=== PATIENT | female | born 1970 | race Caucasian/White ===

== ENCOUNTER 2017-04-11 13:35 | Emergency (ER) | payer OTHER ==
[~2017-04-11] VITALS: Ht 160 cm; Wt 86.2 kg
[~2017-04-11 13:35] MED LIST: ACYCLOVIR800 MG PO; ALBUTEROL SULF8.5 GM IH; ALKA-SELTZER P1 EAC8 PO; CYCLOBENZAPRINE10 MG PO; CYMBALTA20 MG PO; DOXYCYCLINE HY100 MG PO; Duloxetine Hcl; GUAIFENESIN-CO118 ML PO; IBUPROFEN600 MG PO; LIDODERM700 MG TOP; PREDNISONE20 MG PO
== END 2017-04-11 14:24 | disposition home or self-care (01) ==
LOC: ED 13:35
DX: J11.1 Influenza due to unidentified influenza virus with other respiratory manifestations (principal); F17.200 Nicotine dependence, unspecified, uncomplicated; Z90.710 Acquired absence of both cervix and uterus; Z90.89 Acquired absence of other organs; Z98.890 Other specified postprocedural states
CPT/HCPCS: 99281

== ENCOUNTER 2021-08-26 07:54 | Day surgery (SDC) | payer OTHER ==
[~2021-08-26] VITALS: Ht 160 cm; Wt 95.0 kg
[~2021-08-26 07:54] MED LIST changes: +OMEPRAZOLE20 MG PO; +VENTOLIN HFA18 GM INH
--- NOTE | 2021-08-26 10:18 | NUR ---
08/26/21 Jose Miguel8 Corine Marquez 1012- PT ARRIVES TO PACU TALKING WITH STAFF, REPORTING NO PAIN OR NAUSEA. PT PROVIDED A PILLOW PER HER REQUEST. PT FALLS ASLEEP. RESP EVEN AND UNLABORED. OXYGEN SAT MID TO HIGH 90'S ON 3L VIA CO2 NC.
--- NOTE | 2021-08-26 17:32 | OR ---
[facility] [address], [place] [address] Signed DATE OF OPERATION: 08/26/2021 SURGEON: Carla Martinez MD PREOPERATIVE DIAGNOSES: 1. Gastroesophageal reflux disease. 2. Irritable bowel syndrome with diarrhea. 3. Early satiety, bloating, vomiting. 4. Proximal esophageal dysphagia. 5. Unremarkable upper gastrointestinal and ultrasound in October 2020. 6. Mother with colonic polyps. POSTOPERATIVE DIAGNOSES: 1. Minimal gastroduodenitis. 2. Tiny hiatal hernia. 3. Mild inflammation around GE junction. 4. A 5 mm polyp at 40 cm. 5. A 5 mm polyp at 23 cm. 6. Cecal diverticula x2. 7. Total colonic length (75 cm). PROCEDURES: 1. Esophagogastroduodenoscopy with CLOtest and biopsies of the duodenum, antrum, and gastroesophageal junction. 2. Colonoscopy with hot biopsy. ESTIMATED BLOOD LOSS: None. INDICATIONS: Benito is a 51-year-old female, who was asked to see me for upper and lower endoscopies. She has a long list of upper GI complaints as listed above. Of course, that brings up the concern for irritable bowel syndrome. She also mentioned that her mother had colonic polyps. She has been working carefully with her primary care provider. Her upper GI and her liver ultrasound in October 2020 were both unremarkable. She probably has some mild fatty liver. She has been using omeprazole once a day. In the office, I gave Benito a pamphlet on upper and lower endoscopy. We had reviewed the nature of the two tests along with the risks including, but not limited to gas bloating, crampy abdominal pain, bleeding, perforation requiring surgery, and missed diagnosis. We also discussed the need for IV conscious sedation. She had expressed Electronically Signed By: CARLA MARTINEZ MD 08/26/21 4240 PATIENT NAME: BENITO WASHINGTON OPERATIVE REPORT DATE OF : 72 REPORT #: [id number] PHYSICIAN: CARLA MARTINEZ MD PCP: AIDAN DOMINIQUE MD REPORT IS CONFIDENTIAL AND NOT TO BE RELEASED WITHOUT AUTHORIZATION [facility] [address], [place] [address] Signed understanding and wished to proceed. DESCRIPTION OF PROCEDURE: Benito was taken into our endoscopy suite and placed in the supine semi-recumbent position. A bite block was utilized for the case. She was given a total of 7 mg of Versed and 150 mcg of fentanyl to cover both cases. The adult gastroscope had been introduced and advanced out into the third portion of the duodenum. The duodenum was unremarkable. She had very minimal inflammation in the pyloric bulb and her stomach. We took biopsies out of the duodenum as well as the antrum for pathologic review. An additional biopsy came out of the antrum for CLOtest. Upon retroflexion of scope, she has just a very tiny hiatal hernia. The scope was withdrawn up through the area of the GE junction, which was compliant without stricture. There was no gastric or esophageal varices. She does have some inflammatory changes along the edge of the Z-line. Very minimal disruption to the Z-line. There was no Mojica mucosa. No distal esophagitis. The middle and upper esophagus were unremarkable. We taken a biopsy along the edge of the Z-line for pathologic review. Unfortunately, we could not take pictures as the camera would not capture any pictures. Benito was then rotated into the left lateral decubitus position. She was maintained on IV sedation with the Versed and fentanyl. A digital rectal exam was performed and this was unremarkable. She had good sphincter tone. Little or nothing in the way of external hemorrhoids. The adult colonoscope was introduced, advanced all around into the cecum under direct visualization of camera. We found that she had a very short colon about 75 cm in length total. Her prep was quite excellent. We could easily see the appendiceal orifice and ileocecal valve. Again, we could not take any pictures today on our computer program. The scope was then slowly withdrawn. She had two small diverticula in the cecum. She had the two polyps above easily removed with the help of hot biopsy forceps. There was no diverticula in the left sigmoid colon. The rectum was unremarkable. Upon retroflexion of scope, we did not see any additional pathology above the anal canal. After this, the gas was suctioned out, colonoscope removed. Benito tolerated both procedures quite well. RECOMMENDATIONS: I will see Benito back in my office in 7 to 14 days to review her results. It appears that much of this will be related to her stress and/or irritable bowel syndrome. Carla Martinez MD Electronically Signed By: CARLA MARTINEZ MD 08/26/21 1732 PATIENT NAME: BENITO WASHINGTON OPERATIVE REPORT DATE OF : 72 REPORT #: [id number] PHYSICIAN: CARLA MARTINEZ MD PCP: AIDAN DOMINIQUE MD REPORT IS CONFIDENTIAL AND NOT TO BE RELEASED WITHOUT AUTHORIZATION [place] [id number] Signed ALB/MODL /[id number] cc: MD Aidan Farmer MD Patient Chart Copies: CARLA MARTINEZ MD, ROBERT D DMD ~ Electronically Signed By: CARLA MARTINEZ MD 08/26/21 1732 PATIENT NAME: BENITO WASHINGTON OPERATIVE REPORT DATE OF : 72 REPORT #: [id number] PHYSICIAN: CARLA MARTINEZ MD PCP: AIDAN DOMINIQUE MD REPORT IS CONFIDENTIAL AND NOT TO BE RELEASED WITHOUT AUTHORIZATION
--- NOTE | 2021-08-27 15:08 | PATH ---
[facility] [address], [place] [address] Signed SPECIMEN(S): A DUODENAL BIOPSY SPECIMEN(S): B ANTRUM BIOPSY SPECIMEN(S): C GE JUNCTION BIOPSY SPECIMEN(S): D COLON POLYP AT 50 CM SPECIMEN(S): E COLON POLYP AT 23 CM SPECIMEN SOURCE: A. DUODENAL BIOPSY B. ANTRUM BIOPSY C. GE JUNCTION BIOPSY D. COLON POLYP AT 50 CM E. COLON POLYP AT 23 CM CLINICAL HISTORY: Esophagogastroduodenoscopy/colonoscopy. Dysphagia, GERD, diarrhea, irritable bowel, family history of colon polyps. FINAL PATHOLOGIC DIAGNOSIS: A. Duodenum, biopsy: - Duodenal mucosa with focal mild villous blunting and reactive changes. - Negative for increased intraepithelial lymphocytes. - Negative for dysplasia or malignancy. B. Stomach, antrum, biopsy: - Antral mucosa with no histopathologic abnormality. - Negative for Helicobacter organisms on HE stain. - Negative for dysplasia or malignancy. C. Gastroesophageal junction, biopsy: - Squamous mucosa with reactive changes. - Negative for intestinal metaplasia, dysplasia, or malignancy. D. Colon, polyp at 50 cm, polypectomy: - Tubular adenoma. - Negative for high grade dysplasia or malignancy. E. Colon, polyp at 23 cm, polypectomy: - Fragments of tubular adenoma. - Negative for high grade dysplasia or malignancy. NAL:ssm rehab:C2NR MICROSCOPIC EXAMINATION: Histologic sections of all submitted blocks are examined by light microscopy. These findings, together with the gross examination, support the pathologic diagnosis. PATIENT NAME: BENITO WASHINGTON PATHOLOGY DATE OF : 72 REPORT #: [id number] PHYSICIAN: ALEXANDRIA HALL PCP: AIDAN DOMINIQUE MD REPORT IS CONFIDENTIAL AND NOT TO BE RELEASED WITHOUT AUTHORIZATION [facility] [address], [place] [address] Signed GROSS DESCRIPTION: Five specimens are received in five containers, labeled "AW." A. The specimen, labeled "AW, duodenum biopsy," is received in formalin and consists of two layne soft tissue fragments that measure 0.1 cm in greatest dimension. The specimen is entirely submitted in cassette (A1). B. The specimen, labeled "AW, antrum biopsy," is received in formalin and consists of one layne soft tissue fragment that measures 0.1 cm in greatest dimension. The specimen is entirely submitted in cassette (B1). C. The specimen, labeled "AW, GE junction biopsy," is received in formalin and consists of one layne soft tissue fragment that measures 0.2 cm in greatest dimension. The specimen is entirely submitted in cassette (C1). D. The specimen, labeled "AW, colon polyp at 50 cm," is received in formalin and consists of two layne soft tissue fragments that measure 0.1 cm in greatest dimension. The specimen is entirely submitted in cassette (D1). E. The specimen, labeled "AW, colon polyp at 23 cm," is received in formalin and consists of two layne soft tissue fragments that measure 0.1 cm in greatest dimension. The specimen is entirely submitted in cassette (E1). JS (under the direct supervision of a pathologist) The Gross Description was prepared using a voice recognition system. The report was reviewed for accuracy; however, sound-alike word errors, addition and/or deletions may occur. If there is any question about this report, please contact Client Services. PERFORMING LABORATORY: The technical component was performed by [employer], [address] [place] [id number] (CLIA# [id number]). Professional interpretation was performed by [facility], [address] [address], [place] [address] (CLIA# [id number]). Diagnostician: Isela Johns MD Pathologist Electronically Signed 08/27/2021 PATIENT NAME: BENITO WASHINGTON PATHOLOGY DATE OF : 72 REPORT #: [id number] PHYSICIAN: [facility] PATHOLOGY PCP: AIDAN DOMINIQUE MD REPORT IS CONFIDENTIAL AND NOT TO BE RELEASED WITHOUT AUTHORIZATION [facility] [address] [place], [place] [address] Signed Copies: ~ PATIENT NAME: BENITO WASHINGTON PATHOLOGY DATE OF : 72 REPORT #: [id number] PHYSICIAN: A[place] PATHOLOGY PCP: AIDAN DOMINIQUE MD REPORT IS CONFIDENTIAL AND NOT TO BE RELEASED WITHOUT AUTHORIZATION
== END 2021-08-26 11:16 | disposition home or self-care (01) ==
LOC: OPS 07:54 → DS 07:54 → OPS 09:00 → DS 09:00 → OPS 11:16
PROVIDERS: ATTEND Colon & Rectal Surgery
PROC: 0DB48ZX Excision of Esophagogastric Junction, Via Natural or Artificial Opening Endoscopic, Diagnostic (ICD-10-PCS; 2021-08-26)
PROC: 0DBE8ZX Excision of Large Intestine, Via Natural or Artificial Opening Endoscopic, Diagnostic (ICD-10-PCS; 2021-08-26)
PROC: 0DB98ZX Excision of Duodenum, Via Natural or Artificial Opening Endoscopic, Diagnostic (ICD-10-PCS; principal; 2021-08-26 09:00)
PROC: 0DB68ZX Excision of Stomach, Via Natural or Artificial Opening Endoscopic, Diagnostic (ICD-10-PCS; 2021-08-26 09:00)
DX: D12.6 Benign neoplasm of colon, unspecified (principal); K58.0 Irritable bowel syndrome with diarrhea; K44.9 Diaphragmatic hernia without obstruction or gangrene; K29.90 Gastroduodenitis, unspecified, without bleeding; K57.30 Diverticulosis of large intestine without perforation or abscess without bleeding; K21.00 Gastro-esophageal reflux disease with esophagitis, without bleeding; K76.0 Fatty (change of) liver, not elsewhere classified; E78.2 Mixed hyperlipidemia; F17.210 Nicotine dependence, cigarettes, uncomplicated; Z83.71 Family history of colonic polyps
CPT/HCPCS: 36415; 87077; 99153; G0500; J2250; J3010; J7121